=== PATIENT | female | born 1980 | race African-American/Black ===

== ENCOUNTER 2019-03-18 23:44 | Emergency (ER) | payer OTHER ==
[~2019-03-18] VITALS: Ht 167.6 cm; Wt 72.6 kg
--- OUTSIDE RECORDS SUMMARY | 2019-03-18 23:47 | XMS REPORT ---
Author Author [facility] Address Unknown Phone Unavailable Care Team Providers Care Operations Engineer Name Role Phone UNKNOWN, REFFERING PP Unavailable WANDA COLEY Unavailable Unavailable NICOLETTE SEN Unavailable Unavailable FAM FINNEY Unavailable Unavailable GRACIE PENA Unavailable Unavailable Problems This patient has no known problems. Allergies, Adverse Reactions, Alerts This patient has no known allergies or adverse reactions. Medications This patient has no known medications. Encounters Start Date/Time End Date/Time Encounter Type Admission Type Attending [facility] Care Department Encounter ID 2019-05-10 00:00:00 2019-05-10 00:00:00 Outpatient [facility] [id number] 2019-04-30 00:00:00 2019-04-30 00:00:00 Outpatient [facility] [id number] 2019-04-26 00:00:00 2019-04-26 00:00:00 Outpatient [facility] [id number] 2019-04-18 00:00:00 2019-04-18 00:00:00 Outpatient [facility] [id number] 2019-03-13 08:07:01 2019-03-13 08:07:01 Outpatient [facility] [id number] 2019-03-12 00:00:00 2019-03-12 00:00:00 Outpatient [facility] [id number] 2019-03-12 00:00:00 2019-03-12 00:00:00 Outpatient [facility] [id number] 2019-03-08 13:10:37 2019-03-08 13:10:37 Outpatient [facility] [id number] 2019-03-08 00:00:00 2019-03-08 00:00:00 Outpatient [facility] [id number] 2019-03-08 00:00:00 2019-03-08 00:00:00 Outpatient [facility] [id number] 2019-03-01 00:00:00 2019-03-01 00:00:00 Outpatient [facility] [id number] 2019-02-21 00:00:00 2019-02-21 00:00:00 Outpatient [facility] [id number] 2019-02-14 14:52:31 2019-02-14 14:52:31 Outpatient [facility] [id number] 2019-02-14 14:41:50 2019-02-14 14:41:50 Outpatient [facility] [id number] 2019-02-14 14:05:37 2019-02-14 14:05:37 Outpatient [facility] [id number] 2019-02-14 00:00:00 2019-02-14 00:00:00 Outpatient [facility] [id number] 2019-02-13 00:00:00 2019-02-13 00:00:00 Outpatient [facility] [id number] 2019-02-08 00:00:00 2019-02-08 00:00:00 Outpatient [facility] [id number] 2019-02-05 10:05:57 2019-02-05 10:05:57 Outpatient [facility] [id number] 2019-02-01 00:00:00 2019-02-01 00:00:00 Outpatient [facility] [id number] 2019-01-19 00:00:00 2019-01-19 00:00:00 Outpatient [facility] [id number] 2019-01-18 00:00:00 2019-01-18 00:00:00 Outpatient [facility] [id number] 2019-01-16 00:00:00 2019-01-16 00:00:00 Outpatient [facility] [id number] 2019-01-10 00:00:00 2019-01-10 00:00:00 Outpatient [facility] [id number] 2019-01-09 00:00:00 2019-01-09 00:00:00 Outpatient [facility] [id number] 2019-01-01 00:00:00 2019-01-01 00:00:00 Outpatient [facility] [id number] 2018-12-25 00:00:00 2018-12-25 00:00:00 Outpatient [facility] [id number] 2018-12-21 09:40:53 2018-12-21 09:40:53 Outpatient [facility] [id number] 2018-12-12 07:17:49 2018-12-12 07:17:49 Outpatient [facility] [id number] 2018-12-05 00:00:00 2018-12-05 00:00:00 Outpatient [facility] [id number] 2018-11-29 00:00:00 2018-11-29 00:00:00 Outpatient [facility] [id number] 2018-11-28 09:34:07 2018-11-28 09:34:07 Outpatient [facility] [id number] 2018-11-28 00:00:00 2018-11-28 00:00:00 Outpatient [facility] [id number] 2018-11-28 00:00:00 2018-11-28 00:00:00 Outpatient [facility] [id number] 2018-11-27 12:07:03 2018-11-27 12:07:03 Outpatient [facility] [id number] 2018-11-27 00:00:00 2018-11-27 00:00:00 Outpatient [facility] [id number] 2018-11-22 00:00:00 2018-11-22 00:00:00 Outpatient [facility] [id number] 2018-11-22 00:00:00 2018-11-22 00:00:00 Outpatient [facility] [id number] 2018-11-21 00:00:00 2018-11-21 00:00:00 Outpatient [facility] [id number] 2018-11-16 00:00:00 2018-11-16 00:00:00 Outpatient [facility] [id number] 2018-11-14 00:00:00 2018-11-14 00:00:00 Outpatient [facility] [id number] 2018-11-10 10:35:29 2018-11-10 10:35:29 Outpatient [facility] [id number] 2018-11-09 10:24:42 2018-11-09 10:24:42 Outpatient [facility] [id number] 2018-11-08 00:00:00 2018-11-08 00:00:00 Outpatient [facility] [id number] 2018-11-02 00:00:00 2018-11-02 00:00:00 Outpatient [facility] [id number] 2018-10-27 00:00:00 2018-10-27 00:00:00 Outpatient [facility] [id number] 2018-10-26 00:00:00 2018-10-26 00:00:00 Outpatient [facility] [id number] 2018-10-19 10:44:43 2018-10-19 10:44:43 Outpatient [facility] [id number] 2018-10-19 08:56:32 2018-10-19 08:56:32 Outpatient [facility] [id number] 2018-10-10 00:00:00 2018-10-10 00:00:00 Outpatient [facility] [id number] 2018-10-06 00:00:00 2018-10-06 00:00:00 Outpatient [facility] [id number] 2018-10-06 00:00:00 2018-10-06 00:00:00 Outpatient [facility] [id number] 2018-10-02 08:06:07 2018-10-02 08:06:07 Outpatient [facility] [id number] 2018-10-02 00:00:00 2018-10-02 00:00:00 Outpatient [facility] [id number] 2018-10-02 00:00:00 2018-10-02 00:00:00 Outpatient [facility] [id number] 2018-10-02 00:00:00 2018-10-02 00:00:00 Outpatient [facility] [id number] 2018-09-21 11:11:16 2018-09-21 11:11:16 Outpatient [facility] [id number] 2018-09-15 10:37:36 2018-09-15 10:37:36 Outpatient [facility] [id number] 2018-09-04 00:00:00 2018-09-04 00:00:00 Outpatient [facility] [id number] 2018-08-29 00:00:00 2018-08-29 00:00:00 Outpatient [facility] [id number] 2018-08-28 00:00:00 2018-08-28 00:00:00 Outpatient [facility] [id number] 2018-08-24 13:21:35 2018-08-24 13:21:35 Outpatient [facility] [id number] 2018-08-16 00:00:00 2018-08-16 00:00:00 Outpatient [facility] [id number] 2018-08-08 13:02:18 2018-08-08 13:02:18 Outpatient [facility] [id number] 2018-07-31 00:00:00 2018-07-31 00:00:00 Outpatient [facility] [id number] 2018-07-19 09:51:44 2018-07-19 09:51:44 Outpatient [facility] [id number] 2018-07-19 08:44:06 2018-07-19 08:44:06 Outpatient [facility] [id number] 2018-07-19 00:00:00 2018-07-19 00:00:00 Outpatient [facility] [id number] 2018-07-13 08:28:44 2018-07-13 08:28:44 Outpatient [facility] [id number] 2018-07-10 00:00:00 2018-07-10 00:00:00 Outpatient [facility] [id number] 2018-07-04 15:52:29 2018-07-04 15:52:29 Outpatient [facility] [id number] 2018-07-04 14:47:09 2018-07-04 14:47:09 Outpatient [facility] [id number] 2018-06-27 00:00:00 2018-06-27 00:00:00 Outpatient [facility] [id number] 2018-06-22 13:03:05 2018-06-22 13:03:05 Outpatient [facility] [id number] 2018-06-08 10:47:32 2018-06-08 10:47:32 Outpatient [facility] [id number] 2018-06-05 11:00:39 2018-06-05 11:00:39 Outpatient [facility] [id number] 2018-05-26 00:00:00 2018-05-26 00:00:00 Outpatient [facility] [id number] 2018-05-24 00:00:00 2018-05-24 00:00:00 Outpatient [facility] [id number] 2018-05-22 14:38:11 2018-05-22 14:38:11 Outpatient [facility] [id number] 2017-05-05 13:15:00 2017-05-05 13:15:00 Emergency E WANDA COLEY [facility] [id number] 2016-08-15 00:00:00 2016-08-16 00:00:00 [id number] Results Test Description Test Time Test Comments Text Results Atomic Results Result Comments Comprehensive Metabolic Panel 2017-05-05 15:37:00 Sodium (test code=NA) 143 mmol/L 135-145 Potassium (test code=K) 3.5 mmol/L 3.5-5.1 Chloride (test code=CL) 109 mmol/L 98-105 Carbon Dioxide (test code=CO2) 23 mmol/L 22-29 Glucose (test code=GLU) 95 mg/dL 70-115 Blood Urea Nitrogen (test code=BUN) 18 mg/dL 6-20 Creatinine (test code=CREAT) 1.0 mg/dL 0.5-0.9 BUN/Creatinine Ratio (test code=BCRATIO) 18.0 Calcium (test code=CA) 9.5 mg/dL 8.3-10.5 Prot Total (test code=TP) 7.2 g/dL 6.4-8.3 Albumin (test code=ALB) 4.8 g/dL 3.5-5.2 A/G Ratio (test code=AGRATIO) 2.0 Ratio Globulin (test code=GLOB) 2.4 2.9-3.1 Bili Total (test code=TBIL) 0.2 mg/dL 0.1-0.9 Alk Phos (test code=APHOS) 73 U/L 35-104 AST (test code=AST) 14 U/L 1-32 ALT (test code=ALT) 21 U/L 1-33 Estimated GFR (test code=GFR) >60 mL/min/1.73m2 eGFR (estimated Glomerular Filtration Rate) is an estimated value,calculated from the patient's serum creatinine using the MDRD equation.It is NOT the patient's actual GFR. The eGFR provides a more clinicallyuseful measure of kidney disease than serum creatinine alone.This calculation takes sex and race into account, if the informationis provided. If the race is not provided, and the patient isAfrican-Senegalese, multiply by 1.212. If sex is not provided, and thepatient is female, multiply by 0.742. Results for patients <18 years ofage have not been validated by the MDRD study and should be interpretedwith caution.eGFR Result Interpretation:eGFR > or=60 is in the Normal RangeeGFR < 60 may mean kidney diseaseeGFR < 15 may mean kidney failureRanges recommended by the National Kidney Foundat ion,http://nkdep.nih.gov Anion Gap (test code=AGAP) 11 mmol/L 7-16 Urinalysis [id number] 14:00:00* Test Item Value Reference Range Comments Color (test code=COLOR) Yellow Yellow,Straw,Pl yellow Clarity (test code=CLAR) Clear Clear Specific [place] (test code=SPGR) 1.030 1.001-1.035 pH (test code=PH) 6.0 5.0-9.0 Ketone (test code=KET) Negative Negative Glucose (test code=GLUCUR) Negative Negative Protein (test code=PROT) Trace Negative Bilirubin (test code=BILI) 1+ Negative Ictotest (test code=ICTOTEST) Confirmed Negative Negative Occult Blood (test code=UDOB) Negative Negative Urobilinogen (test code=UROB) 0.2 0.2-1.0 Nitrite (test code=NIT) Negative Negative Leuk Esterase (test code=LEUK) Negative Negative Micros Exam (test code=MEXAM) Not indicated CBC with [id number] 14:00:00* Test Item Value Reference Range Comments WBC (test code=WBC) 6.4 K/cumm 4.4-10.5 RBC (test code=RBC) 3.10 M/cumm 3.75-5.20 Hemoglobin (test code=HGB) 9.8 gm/dL 12.2-14.8 Hematocrit (test code=HCT) 30.5 % 36.5-44.4 MCV (test code=MCV) 98.4 fL 80-100 MCH (test code=MCH) 31.6 pg 27.0-32.5 MCHC (test code=MCHC) 32.1 % 32.0-37.5 RDW (test code=RDW) 13.8 % 11.5-14.5 Platelet Count (test code=PLTCT) 360 K/cumm 140-440 MPV (test code=MPV) 9.2 fL Diff Method (test code=DIFFM) Auto Neutrophil (test code=NEUT) 47.8 % 36-70 Lymphocyte (test code=LYMPH) 45.9 % 12-44 Monocyte (test code=MONO) 6.1 % 0-11 Eosinophil (test code=EOS) 0.0 % 0-7 Basophil (test code=BASO) 0.2 % 0-2 Neutro Abs (test code=ANEUT) 3.1 K/cumm 1.6-7.4 Lymph Abs (test code=ALYMPH) 3.0 K/cumm 0.5-4.6 [place] Abs (test code=AMONO) 0.4 K/cumm 0.0-1.2 Eos Abs (test code=AEOS) 0.00 K/cumm 0.00-0.74 Baso Abs (test code=ABASO) 0.0 K/cumm 0.00-0.21 URINALYSIS W/ [id number] 06:14:00* Test Item Value Reference Range Comments COLOR (BEAKER) (test zrxf=579) Yellow CLARITY (BEAKER) (test azyt=831) Clear SPECIFIC GRAVITY UA (BEAKER) (test bosg=459) 1.025 1.001-1.035 PH UA (BEAKER) (test wsip=679) 6.0 5.0-8.0 PROTEIN UA (BEAKER) (test xxoc=358) Trace Negative GLUCOSE UA (BEAKER) (test bjdm=705) Negative Negative KETONES UA (BEAKER) (test mowv=605) Negative Negative BILIRUBIN UA (BEAKER) (test thaj=539) Negative Negative BLOOD UA (BEAKER) (test dtld=768) Large Negative NITRITE UA (BEAKER) (test qfpg=252) Negative Negative LEUKOCYTE ESTERASE UA (BEAKER) (test todp=067) Negative Negative UROBILINOGEN UA (BEAKER) (test bmgv=733) 0.2 mg/dL 0.2-1.0 BACTERIA (BEAKER) (test coqb=677) Occasional RBC UA-MANUAL (BEAKER) (test gkyk=2572) 10-20 /HPF WBC UA-MANUAL (BEAKER) (test qqbg=4543) <5 /HPF SQUAMOUS EPITHELIAL MANUAL (BEAKER) (test yvwd=6173) <5 /HPF SOURCE(BEAKER) (test ykzc=0587) SCREEN, [id number] 06:12:00* Test Item Value Reference Range Comments TEST URINE (BEAKER) (test duwa=428) Negative CBC W/PLT COUNT & AUTO [id number] 05:59:00* Test Item Value Reference Range Comments WHITE BLOOD CELL COUNT (BEAKER) (test snip=833) 3.7 K/ L 4.0-10.0 RED BLOOD CELL COUNT (BEAKER) (test pqso=145) 3.00 M/ L 4.00-5.00 HEMOGLOBIN (BEAKER) (test nxcd=172) 9.4 GM/DL 12.0-15.0 HEMATOCRIT (BEAKER) (test utcu=671) 28.8 % 36.0-45.0 MEAN CORPUSCULAR VOLUME (BEAKER) (test bnty=238) 96.0 fL 82.0-99.0 MEAN CORPUSCULAR HEMOGLOBIN (BEAKER) (test cidr=630) 31.5 pg 27.0-33.0 MEAN CORPUSCULAR HEMOGLOBIN CONC (BEAKER) (test xihp=394) 32.9 GM/DL 32.0-36.0 RED CELL DISTRIBUTION WIDTH (BEAKER) (test zvsc=581) 13.6 % 10.3-14.2 PLATELET COUNT (BEAKER) (test teva=842) 228 K/CU MM 150-430 MEAN PLATELET VOLUME (BEAKER) (test zmzn=777) 8.0 fL 6.5-10.5 NUCLEATED RED BLOOD CELLS (BEAKER) (test xikx=868) 0 /100 WBC 0-0 (MANUAL DIFFERENTIAL)2016-12-19 05:59:00* Test Item Value Reference Range Comments NEUTROPHILS - REL (DIFF) (BEAKER) (test wutc=5695) 41 % LYMPHOCYTES - REL (DIFF) (BEAKER) (test pxax=9971) 58 % MONOCYTES - REL (DIFF) (BEAKER) (test denh=6139) 1 % NEUTROPHILS - ABS (DIFF) (BEAKER) (test ifcx=6277) 1.52 K/ L 1.80-8.00 LYMPHOCYTES - ABS (DIFF) (BEAKER) (test afbg=6349) 2.15 K/ L 1.48-4.50 MONOCYTES - ABS (DIFF) (BEAKER) (test hrhs=7055) 0.04 K/ L 0.00-1.30 TOTAL COUNTED (BEAKER) (test aamo=5709) 100 WBC MORPHOLOGY (BEAKER) (test joet=237) Normal PLT MORPHOLOGY (BEAKER) (test ojzz=358) Normal RBC MORPHOLOGY (BEAKER) (test iuew=332) Normal BASIC METABOLIC [id number] 05:28:00* Test Item Value Reference Range Comments SODIUM (BEAKER) (test kyxf=415) 138 meq/L 135-148 POTASSIUM (BEAKER) (test vjxm=368) 4.8 meq/L 3.6-5.5 Specimen slightly hemolyzed CHLORIDE (BEAKER) (test gzgq=157) 109 meq/L 98-106 CO2 (BEAKER) (test psfd=861) 20 meq/L 20-29 BLOOD UREA NITROGEN (BEAKER) (test zhmr=233) 17 mg/dL 10-26 CREATININE (BEAKER) (test ejti=255) 0.90 mg/dL 0.50-1.20 Specimen slightly hemolyzed GLUCOSE RANDOM (BEAKER) (test fpej=689) 79 mg/dL 70-110 CALCIUM (BEAKER) (test hjli=450) 8.9 mg/dL 8.5-10.5 EGFR (BEAKER) (test ywjx=4650) 87 mL/min/1.73 sq m ESTIMATED GFR IS NOT ACCURATE CREATININE CLEARANCE IN PREDICTING GLOMERULAR FILTRATION RATE. ESTIMATED GFR IS NOT APPLICABLE FOR DIALYSIS PATIENTS. Comprehensive Metabolic [id number] 23:48:00* Test Item Value Reference Range Comments Sodium (test code=NA) 135 mmol/L 135-145 Potassium (test code=K) 4.5 mmol/L 3.5-5.1 Chloride (test code=CL) 106 mmol/L 98-105 Carbon Dioxide (test code=CO2) 21 mmol/L 22-29 Anion Gap (test code=AGAP) 8 mmol/L 7-16 Glucose (test code=GLU) 91 mg/dL 70-115 Blood Urea Nitrogen (test code=BUN) 14 mg/dL 6-20 Creatinine (test code=CREAT) 0.9 mg/dL 0.5-0.9 BUN/Creatinine Ratio (test code=BCRATIO) 15.6 Calcium (test code=CA) 9.1 mg/dL 8.3-10.5 Prot Total (test code=TP) 6.5 g/dL 6.4-8.3 Albumin (test code=ALB) 4.3 g/dL 3.5-5.2 A/G Ratio (test code=AGRATIO) 2.0 Ratio Globulin (test code=GLOB) 2.2 2.9-3.1 Bili Total (test code=TBIL) 0.1 mg/dL 0.1-0.9 Alk Phos (test code=APHOS) 63 U/L 35-104 AST (test code=AST) 20 U/L 1-32 ALT (test code=ALT) 37 U/L 1-33 Estimated GFR (test code=GFR) >60 mL/min/1.73m2 eGFR (estimated Glomerular Filtration Rate) is an estimated value,calculated from the patient's serum creatinine using the MDRD equation.It is NOT the patient's actual GFR. The eGFR provides a more clinicallyuseful measure of kidney disease than serum creatinine alone.This calculation takes sex and race into account, if the informationis provided. If the race is not provided, and the patient isAfrican-Senegalese, multiply by 1.212. If sex is not provided, and thepatient is female, multiply by 0.742. Results for patients <18 years ofage have not been validated by the MDRD study and should be interpretedwith caution.eGFR Result Interpretation:eGFR > or=60 is in the Normal RangeeGFR < 60 may mean kidney diseaseeGFR < 15 may mean kidney failureRanges recommended by the National Kidney Foundat ion,http://nkdep.nih.gov Urinalysis [id number] 23:31:00* Test Item Value Reference Range Comments Color (test code=COLOR) Yellow Yellow,Straw,Pl yellow Clarity (test code=CLAR) Clear Clear Specific [place] (test code=SPGR) >1.030 1.001-1.035 pH (test code=PH) 6.0 5.0-9.0 Ketone (test code=KET) Negative Negative Glucose (test code=GLUCUR) Negative Negative Protein (test code=PROT) 30 Negative Bilirubin (test code=BILI) Small Negative Ictotest (test code=ICTOTEST) Confirmed Negative Negative Occult Blood (test code=UDOB) Large Negative Urobilinogen (test code=UROB) 0.2 0.2-1.0 Nitrite (test code=NIT) Negative Negative Leuk Esterase (test code=LEUK) Negative Negative Micros Exam (test code=MEXAM) Indicated Epithelial Cells (test code=EPI) 6-9 /HPF 0-30 WBC, Urine (test code=UWBC) 6-10 /LPF 0-5 RBC, Urine (test code=URBC) 31-40 /LPF 0-5 Mucous, Urine (test code=UMUC) Trace /HPF Bacteria (test code=BACT) Occ /LPF CBC with [id number] 23:26:00* Test Item Value Reference Range Comments WBC (test code=WBC) 2.9 K/cumm 4.4-10.5 RBC (test code=RBC) 3.05 M/cumm 3.75-5.20 Hemoglobin (test code=HGB) 10.1 gm/dL 12.2-14.8 Hematocrit (test code=HCT) 30.4 % 36.5-44.4 MCV (test code=MCV) 99.7 fL 80-100 MCH (test code=MCH) 33.1 pg 27.0-32.5 MCHC (test code=MCHC) 33.2 % 32.0-37.5 RDW (test code=RDW) 12.7 % 11.5-14.5 Platelet Count (test code=PLTCT) 272 K/cumm 140-440 MPV (test code=MPV) 9.4 fL Diff Method (test code=DIFFM) Auto Neutrophil (test code=NEUT) 47.9 % 36-70 Lymphocyte (test code=LYMPH) 44.4 % 12-44 Monocyte (test code=MONO) 7.7 % 0-11 Eosinophil (test code=EOS) 0.0 % 0-7 Basophil (test code=BASO) 0.0 % 0-2 Neutro Abs (test code=ANEUT) 1.4 K/cumm 1.6-7.4 Lymph Abs (test code=ALYMPH) 1.3 K/cumm 0.5-4.6 [place] Abs (test code=AMONO) 0.2 K/cumm 0.0-1.2 Eos Abs (test code=AEOS) 0.00 K/cumm 0.00-0.74 Baso Abs (test code=ABASO) 0.0 K/cumm 0.00-0.21 50254& PELVIS W/O [id number] 22:59:17CT ABDOMEN AND PELVIS WITHOUT CONTRASTAfter-hours services performed at 2240 hours.LOCATION: [id number]: Abdominal pain, flank pain, hematuria.COMPARISON: 06/12/2016.TECHNIQUE: Volumetric CT acquisition of the abdomen and pelvis withoutcontrast. Axial images were reconstructed. One or more of the followingradiation dose reduction techniques was used: automated exposurecontrol, adjustment of the mA and/or kV according to patient size,and/or utilization of iterative reconstructive technique.FINDINGS:The lung bases are clear. Visualized portions of the heart are normal.The liver, gallbladder, pancreas, spleen, and adrenal glands are n ormal.Small bilateral renal calculi measure up to 4 mm. There is nohydronephrosi s or hydroureter. The bladder is normal. The uterus isabsent. No ovarian abnorma lity is visualized. There is no substantialsmall bowel or colonic dilation or wa ll thickening. The appendix is notvisualized.There is no lymphadenopathy, free a ir or fluid, or focal osseousabnormality in the abdomen or pelvis.IMPRESSION:1. Bilateral small nonobstructing renal calculi.2. No bowel obstruction or acute in flammatory process visualized.CBC W/PLT COUNT & AUTO [id number] 23:56:00* Test Item Value Reference Range Comments WHITE BLOOD CELL COUNT (BEAKER) (test cgnj=757) 3.3 10e3/ L 4.0-10.0 RED BLOOD CELL COUNT (BEAKER) (test kpqn=875) 4.84 10e6/ L 4.00-5.00 HEMOGLOBIN (BEAKER) (test jgqo=018) 15.6 g/dL 12.0-15.0 HEMATOCRIT (BEAKER) (test buua=130) 46.4 % 36.0-45.0 MEAN CORPUSCULAR VOLUME (BEAKER) (test mrdt=911) 95.9 fL 82.0-99.0 MEAN CORPUSCULAR HEMOGLOBIN (BEAKER) (test vvgk=855) 32.2 pg 27.0-33.0 MEAN CORPUSCULAR HEMOGLOBIN CONC (BEAKER) (test ylgb=194) 33.5 g/dL 32.0-36.0 RED CELL DISTRIBUTION WIDTH (BEAKER) (test dkua=347) 11.9 % 10.3-14.2 PLATELET COUNT (BEAKER) (test wrog=437) 138 10e3/ L 150-430 MEAN PLATELET VOLUME (BEAKER) (test kpuc=171) 7.7 fL 6.5-10.5 NEUTROPHILS RELATIVE PERCENT (BEAKER) (test tqiz=357) 56 % LYMPHOCYTES RELATIVE PERCENT (BEAKER) (test bprv=285) 35 % MONOCYTES RELATIVE PERCENT (BEAKER) (test mmmr=474) 8 % EOSINOPHILS RELATIVE PERCENT (BEAKER) (test mged=635) 0 % BASOPHILS RELATIVE PERCENT (BEAKER) (test qwko=718) 0 % NEUTROPHILS ABSOLUTE COUNT (BEAKER) (test jwdc=056) 1.87 10e3/ L 1.80-8.00 LYMPHOCYTES ABSOLUTE COUNT (BEAKER) (test qhgu=103) 1.17 10e3/ L 1.48-4.50 MONOCYTES ABSOLUTE COUNT (BEAKER) (test zpoh=318) 0.26 10e3/ L 0.00-1.30 EOSINOPHILS ABSOLUTE COUNT (BEAKER) (test tgst=078) 0.01 10e3/ L 0.00-0.50 BASOPHILS ABSOLUTE COUNT (BEAKER) (test bgxz=388) 0.01 10e3/ L 0.00-0.20 BASIC METABOLIC [id number] 23:52:00* Test Item Value Reference Range Comments SODIUM (BEAKER) (test bzpk=400) 142 meq/L 135-148 POTASSIUM (BEAKER) (test adib=181) 3.4 meq/L 3.6-5.5 CHLORIDE (BEAKER) (test fxdy=832) 104 meq/L 98-106 CO2 (BEAKER) (test uhqd=844) 22 meq/L 24-32 BLOOD UREA NITROGEN (BEAKER) (test zmhl=712) 11 mg/dL 10-26 CREATININE (BEAKER) (test ykad=288) 0.85 mg/dL 0.50-1.20 GLUCOSE RANDOM (BEAKER) (test qcll=135) 111 mg/dL 70-110 CALCIUM (BEAKER) (test liyb=053) 9.8 mg/dL 8.5-10.5 EGFR (BEAKER) (test otwq=6247) 93 mL/min/1.73 sq m ESTIMATED GFR IS NOT ACCURATE CREATININE CLEARANCE IN PREDICTING GLOMERULAR FILTRATION RATE. ESTIMATED GFR IS NOT APPLICABLE FOR DIALYSIS PATIENTS. [id number] 17:05:00* Test Item Value Reference Range Comments Amylase (test code=DEL) 68 U/L 28-100 Comprehensive Metabolic [id number] 17:02:00* Test Item Value Reference Range Comments Sodium (test code=NA) 141 mmol/L 135-145 Potassium (test code=K) 3.8 mmol/L 3.5-5.1 Chloride (test code=CL) 109 mmol/L 98-105 Carbon Dioxide (test code=CO2) 23 mmol/L 22-29 Anion Gap (test code=AGAP) 9 mmol/L 7-16 Glucose (test code=GLU) 81 mg/dL 70-115 Blood Urea Nitrogen (test code=BUN) 14 mg/dL 6-20 Creatinine (test code=CREAT) 1.0 mg/dL 0.5-0.9 BUN/Creatinine Ratio (test code=BCRATIO) 14.0 Calcium (test code=CA) 9.4 mg/dL 8.3-10.5 Prot Total (test code=TP) 7.0 g/dL 6.4-8.3 Albumin (test code=ALB) 4.8 g/dL 3.5-5.2 A/G Ratio (test code=AGRATIO) 2.2 Ratio Globulin (test code=GLOB) 2.2 2.9-3.1 Bili Total (test code=TBIL) 0.2 mg/dL 0.1-0.9 Alk Phos (test code=APHOS) 68 U/L 35-104 AST (test code=AST) 17 U/L 1-32 ALT (test code=ALT) 12 U/L 1-33 Estimated GFR (test code=GFR) >60 mL/min/1.73m2 eGFR (estimated Glomerular Filtration Rate) is an estimated value,calculated from the patient's serum creatinine using the MDRD equation.It is NOT the patient's actual GFR. The eGFR provides a more clinicallyuseful measure of kidney disease than serum creatinine alone.This calculation takes sex and race into account, if the informationis provided. If the race is not provided, and the patient isAfrican-Sen[place]alese, multiply by 1.212. If sex is not provided, and thepatient is female, multiply by 0.742. Results for patients <18 years ofage have not been validated by the MDRD study and should be interpretedwith caution.eGFR Result Interpretation:eGFR > or=60 is in the Normal RangeeGFR < 60 may mean kidney diseaseeGFR < 15 may mean kidney failureRanges recommended by the National Kidney Foundat ion,http://nkdep.nih.gov [id number] 17:01:00* Test Item Value Reference Range Comments Lipase (test code=LIP) 19 U/L 13-60 Urinalysis [id number] 16:58:00* Test Item Value Reference Range Comments Color (test code=COLOR) Light yellow Yellow,Straw,Pl yellow Clarity (test code=CLAR) Clear Clear Specific [place] (test code=SPGR) >1.030 1.001-1.035 pH (test code=PH) 6.0 5.0-9.0 Ketone (test code=KET) Negative Negative Glucose (test code=GLUCUR) Negative Negative Protein (test code=PROT) 30 Negative Bilirubin (test code=BILI) Negative Negative Occult Blood (test code=UDOB) Negative Negative Urobilinogen (test code=UROB) 0.2 0.2-1.0 Nitrite (test code=NIT) Negative Negative Leuk Esterase (test code=LEUK) Negative Negative Micros Exam (test code=MEXAM) Indicated Epithelial Cells (test code=EPI) Moderate /HPF 0-30 WBC, Urine (test code=UWBC) 3-5 /LPF 0-5 RBC, Urine (test code=URBC) 2-5 /LPF 0-5 Mucous, Urine (test code=UMUC) Few /HPF Bacteria (test code=BACT) Few /LPF BHCG, Urine, [id number] 16:45:00* Test Item Value Reference Range Comments Preg Qual [Ur] (test code=HUHCG) Negative Negative CBC with [id number] 16:44:00* Test Item Value Reference Range Comments WBC (test code=WBC) 3.6 K/cumm 4.4-10.5 RBC (test code=RBC) 3.44 M/cumm 3.75-5.20 Hemoglobin (test code=HGB) 11.5 gm/dL 12.2-14.8 Hematocrit (test code=HCT) 35.3 % 36.5-44.4 MCV (test code=MCV) 102.6 fL 80-100 MCH (test code=MCH) 33.4 pg 27.0-32.5 MCHC (test code=MCHC) 32.6 % 32.0-37.5 RDW (test code=RDW) 12.0 % 11.5-14.5 Platelet Count (test code=PLTCT) 216 K/cumm 140-440 MPV (test code=MPV) 10.1 fL Diff Method (test code=DIFFM) Auto Neutrophil (test code=NEUT) 47.9 % 36-70 Lymphocyte (test code=LYMPH) 42.7 % 12-44 Monocyte (test code=MONO) 9.4 % 0-11 Eosinophil (test code=EOS) 0.0 % 0-7 Basophil (test code=BASO) 0.0 % 0-2 Neutro Abs (test code=ANEUT) 1.7 K/cumm 1.6-7.4 Lymph Abs (test code=ALYMPH) 1.5 K/cumm 0.5-4.6 [place] Abs (test code=AMONO) 0.3 K/cumm 0.0-1.2 Eos Abs (test code=AEOS) 0.00 K/cumm 0.00-0.74 Baso Abs (test code=ABASO) 0.0 K/cumm 0.00-0.21
[2019-03-19] MEDS ORDERED: DEXAMETHASONE SOD PHOS 10 MG/1 ML VIAL IM ONE (00:30)
[2019-03-19] MEDS ORDERED: DEXAMETHASONE SOD PHOS 10 MG/1 ML VIAL ONE (00:30)
[2019-03-19] MEDS ORDERED: HYDROCODONE/APAP 5MG-325MG TAB PO ONE (00:30)
[2019-03-19] MEDS ORDERED: TYLENOL WITH C1 EACH PO (00:31)
[2019-03-19] MEDS ORDERED: PREDNISONE20 MG PO (00:31)
[2019-03-19] MEDS ORDERED: HYDROCODONE/APAP 5MG-325MG TAB ONE (00:32)
== END 2019-03-19 00:50 | disposition home or self-care (01) ==
LOC: FSED 23:44
DX: M79.662 Pain in left lower leg (principal); M79.661 Pain in right lower leg; M32.9 Systemic lupus erythematosus, unspecified
CPT/HCPCS: 99283; J1100

== ENCOUNTER 2019-05-15 13:58 | Emergency (ER) | payer OTHER ==
[~2019-05-15] VITALS: Ht 167.6 cm; Wt 72.6 kg
[~2019-05-15 13:58] MED LIST: PREDNISONE20 MG PO; TYLENOL WITH C1 EACH PO
[2019-05-15] MEDS ORDERED: SEROQUEL100 MG PO (14:57)
== END 2019-05-15 15:08 | disposition home or self-care (01) ==
LOC: FSED 13:58
DX: Z76.0 Encounter for issue of repeat prescription (principal); F41.9 Anxiety disorder, unspecified
CPT/HCPCS: 99282

== ENCOUNTER 2019-08-12 16:03 | Emergency (ER) | payer OTHER ==
[~2019-08-12] VITALS: Ht 167.6 cm; Wt 81.6 kg
[~2019-08-12 16:03] MED LIST changes: +SEROQUEL100 MG PO
[2019-08-12] MEDS ORDERED: ZYPREXA5 MG PO (17:00)
--- NOTE | 2019-08-12 17:25 | Emergency Department Note ---
History of Present Illnes History of Present Illness Chief Complaint: Psychiatric History of Present Illness This is a 39 year old female, with a history of anxiety, hyper tension and seizure disorder who is here for a refill of her anxiety medication. She was seen here in 05/2019, also requesting refills. She states that she has been unable to see her doctor, due to COVID. She states that she has an appointment on 09/07/[address] Wakefield. She is currently feeling anxious, but denies cp or sob. 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 Required: No Onset (how long ago): day(s) (4) Location: general Quality: anxious Radiation: Reports non-radiation Severity: moderate Onset quality: gradual Duration (how long): day(s) (4) Timing of current episode: constant Progression: worsening Chronicity: recurrent Context: Denies recent illness, Denies trauma/injury Relieving factors: none Exacerbating factors: none Associated symptoms: Reports denies other symptoms; Denies chest pain, Denies headaches, Denies nausea/vomiting, Denies shortness of breath Treatments prior to arrival: none Past Medical/Family History Physician Review I have reviewed the patient's past medical and family history. Any updates have been documented here. Past Medical History Recent Fever: No Clinical Suspicion of Infectio: No New/Unexplained Change in Ment: No Past Medical History: Kidney Stones, Anemia, Anxiety, DVT/PE, Lupus Other Medical History: ULCERS EPILEPSY SBO Past Surgical History: Hysterectomy, Other Surgery: LITHOTRIPSY SMALL BOWEL OBS RESECTION Social History Smoking Cessation: Never Smoker Counseling Performed: No Alcohol Use: Occasional Any Illegal Drug Use: No Physically hurt or threatened: No Other Last Tetanus: UNK Any Pre-Existing Lines (PICC,: No Review of Systems Review of Systems Constitutional: Denies chills, Denies fever EENTM: Reports no symptoms Cardiovascular: Reports no symptoms; Denies chest pain, Denies palpitations Respiratory: Reports no symptoms; Denies pain with cough, Denies dyspnea, Denies dyspnea on exertion Gastrointestinal: Denies abdominal pain, Denies nausea, Denies vomiting Genitourinary: Reports no symptoms Musculoskeletal: Reports no symptoms Integumentary: Reports no symptoms Neurological: Reports no symptoms Psychological: Reports anxiety Endocrine: Reports no symptoms Hematological/Lymphatic: Reports no symptoms Review of other systems: All other systems negative Physical Exam Related Data Allergies: Coded Allergies: NSAIDS (Non-Steroidal Anti-Inflamma (Verified Allergy, Unknown, 03/19/19) Vital signs reviewed: Yes Physical Exam CONSTITUTIONAL Constitutional: Present well-developed, Present well-nourished; Absent distressed, Absent ill appearing HENT HENT: Present normocephalic, Present atraumatic, Present oropharynx clear/moist, Present nose normal; Absent nasal congestion HENT L/R: Present left ext ear normal, Present right ext ear normal EYES Eyes: Reports PERRL, Reports conjunctivae normal NECK Neck: Present ROM normal PULMONARY Pulmonary: Present effort normal, Present breath sounds normal CARDIOVASCULAR Cardiovascular: Present regular rhythm, Present heart sounds normal, Present capillary refill normal, Present normal rate; Absent murmur GASTROINTESTINAL Abdominal: Present soft, Present nontender, Present bowel sounds normal GENITOURINARY Genitourinary: Present exam deferred SKIN Skin: Present warm, Present dry; Absent rash MUSCULOSKELETAL Musculoskeletal: Present ROM normal; Absent tenderness, Absent swelling NEUROLOGICAL Neurological: Present alert, Present oriented x 3, Present no gross motor or sensory deficits PSYCHOLOGICAL Psychological: Present mood/affect normal, Present behavior normal, Present thought content normal, Present judgement normal Assessment & Plan Medical Decision Making MDM Follow-up with your Psychiatrist, as scheduled, on 09/07/2019. Offered patient a dose of oral Ativan in the ED, but patient drove herself here and does not have a ride home. Return to the ED, if your symptoms worsen. Assessment & Plan Final Impression: (1) Anxiety (2) Medication refill Depart Disposition: HOME, SELF-halfway Meds Active Scripts Olanzapine (ZYPREXA) 5 Mg Tablet, 20 MG PO BID for anxiety, #52 TAB 0 Refills Prov:KAILASH MCCABE MD 08/12/19 Quetiapine Fumarate (SEROQUEL) 100 Mg Tablet, 1 TAB PO DAILY for 30 Days, #30 TAB Prov:DEANDRE MCGOVERN 05/15/19 Acetaminophen With Codeine (TYLENOL WITH CODEINE #3 TABLET) 1 Each Tablet, 300 MG PO BID for PAIN, #10 TAB Prov:JAIDA HEDRICK MD 03/19/19 Prednisone (PREDNISONE) 20 Mg Tab, 20 MG PO DAILY for 5 Days, TAB Prov:JAIDA HEDRICK MD 03/19/19 KAILASH MCCABE MD Aug 12, 2019 17:24
== END 2019-08-12 17:53 | disposition home or self-care (01) ==
LOC: FSED 16:32
DX: Z76.0 Encounter for issue of repeat prescription (principal); F41.9 Anxiety disorder, unspecified
CPT/HCPCS: 99282

== ENCOUNTER 2021-12-24 19:17 | Emergency (ER) | payer MEDICARE, OTHER ==
[~2021-12-24] VITALS: Ht 167.6 cm; Wt 68.9 kg
[~2021-12-24 19:17] MED LIST changes: +ZYPREXA5 MG PO
[2021-12-24] MEDS ORDERED: KETOROLAC TROMETHAMINE 30 MG/ML VIAL IV STA (21:03)
[2021-12-24] MEDS ORDERED: ONDANSETRON HCL INJ 2MG/ML 2ML 2 MG/ML VIAL IV STA (21:03)
[2021-12-24] MEDS ORDERED: FAMOTIDINE 20 MG/2 ML VIAL IV STA (21:05)
[2021-12-24] MEDS ORDERED: SODIUM CHLORIDE 0.9% 1000ML 1,000 ML IV SCH (21:15)
[2021-12-24] MEDS ORDERED: SODIUM CHLORIDE 0.9% 1000ML 1,000 ML ONE (21:49)
[2021-12-24] MEDS ORDERED: ONDANSETRON HCL INJ 2MG/ML 2ML 2 MG/ML VIAL ONE (21:49)
[2021-12-24] MEDS ORDERED: KETOROLAC TROMETHAMINE 30 MG/ML VIAL ONE (21:49)
[2021-12-24] MEDS ORDERED: FAMOTIDINE 20 MG/2 ML VIAL IV ONE (21:50)
[2021-12-24] MEDS ORDERED: IOPAMIDOL 370 MG/ML 100 ML INFUS..BTL INJ ONE (22:43)
[2021-12-24] MEDS ORDERED: POTASSIUM CHLORIDE 20 MEQ TAB CR PO STA (23:06)
[2021-12-24] MEDS ORDERED: PROMETHAZINE 25MG/ NS 50ML (IV) IV ONE (23:15)
[2021-12-24] MEDS ORDERED: PROMETHAZINE HCL (IM) 25 MG/ML VIAL IM ONE (23:21)
[2021-12-25] MEDS ORDERED: POTASSIUM CHLORIDE 20 MEQ TAB CR PO ONE (00:03)
[2021-12-25] MEDS ORDERED: PROMETHAZINE HC25 M1 PO (00:24)
[2021-12-25] MEDS ORDERED: POTASSIUM CHLO10 ME1 PO (00:26)
[2021-12-25 00:38] VITALS: BP 128/82
== END 2021-12-25 00:38 | disposition home or self-care (01) ==
LOC: FSED 19:31
DX: R10.84 Generalized abdominal pain (principal); K59.00 Constipation, unspecified; E87.6 Hypokalemia; E11.9 Type 2 diabetes mellitus without complications; D64.9 Anemia, unspecified; D84.821 Immunodeficiency due to drugs; T38.0X5A Adverse effect of glucocorticoids and synthetic analogues, initial encounter; M32.9 Systemic lupus erythematosus, unspecified; D68.9 Coagulation defect, unspecified
CPT/HCPCS: 74177; 80048; 80076; 81003; 81025; 85025; 96374; 96375; 96376; 99284; J1885; J2405; J2550; J7030; Q9967